=== PATIENT | male | born 1965 | race Caucasian/White ===

== ENCOUNTER 2017-05-12 17:13 | Emergency (ER) | payer MEDICAID ==
[2017-05-12 17:24] VITALS: BMI 21.2
[2017-05-12 17:27] VITALS: BP 115/73; PULSE 79; RESP 18; TEMP 98.2; O2SAT 98
[2017-05-12] MEDS ORDERED: cefTRIAXone (Rocephin) 250 mg Inj IM STA (18:01)
--- NOTE | 2017-05-12 18:28 | ED PDOC ---
Arrival/HPI - General Chief Complaint: Male Genitourinary Time Seen by Provider: 05/12/17 17:45 Historian: Patient - History of Present Illness Narrative History of Present Illness (Text): 05/12/17 18:09 52yr old male presents today with concerns for std. pt states his girlfriend was diagnosed with trichomonasis. pt denies any symptoms but wants to be treated for stds. no cp or sob. no abdominal pain. no penile discharge, no dysuria. no testicular pain. Past Medical History - Provider Review Nursing Documentation Reviewed: Yes - Travel History Have you recently traveled outside [place] w/in the past 3 mons?: No - Infectious Disease Hx of Infectious Diseases: None - Tetanus Immunization Tetanus Immunization: Up to Date - Psychiatric Hx Psychophysiologic Disorder: No Hx Substance Use: No - Anesthesia Hx Anesthesia: No - Suicidal Assessment Feels Threatened In Home Enviroment: No Family/Social History - Physician Review Nursing Documentation Reviewed: Yes Family/Social History: Unknown Family HX Smoking Status: Heavy Smoker > 10 Cigarettes Daily Hx Alcohol Use: Yes Frequency of alcohol use: Socially Hx Substance Use: No Allergies/Home Meds Allergies/Adverse Reactions: Allergies No Known Allergies Allergy (Verified 10/06/16 19:09) Home Medications: Home Meds Medication Instructions Recorded Confirmed No Known Home Med 05/12/17 05/12/17 Review of Systems - Review of Systems Constitutional: absent: Fatigue, Fevers Respiratory: absent: SOB, Cough Cardiovascular: absent: Chest Pain, Palpitations Gastrointestinal: absent: Abdominal Pain, Nausea, Vomiting Genitourinary Male: absent: Dysuria, Frequency, Hematuria, Urinary Output Changes Musculoskeletal: absent: Arthralgias, Back Pain, Neck Pain Skin: absent: Rash, Pruritis Neurological: absent: Headache, Dizziness Psychiatric: absent: Anxiety, Depression Physical Exam Vital Signs Reviewed: Yes Vital Signs Temp Pulse Resp BP Pulse Ox 05/12/17 17:27 98.2 F 79 18 115/73 98 Temperature: Afebrile Blood Pressure: Normal Pulse: Regular Respiratory Rate: Normal Appearance: Positive for: Well-Appearing, Non-Toxic, Comfortable Pain Distress: None Mental Status: Positive for: Alert and Oriented X 3 - Systems Exam Head: Present: Atraumatic Mouth: Present: Moist Mucous Membranes Neck: Present: Normal Range of Motion Respiratory/Chest: Present: Clear to Auscultation, Good Air Exchange. No: Respiratory Distress, Accessory Muscle Use Cardiovascular: Present: Regular Rate and Rhythm, Normal S1, S2. No: Murmurs Abdomen: No: Tenderness Genitourinary Male: Present: Normal External Genitalia, Circumcised Penis, Other (chaparoned by dr. Tapia). No: Penile Discharge, Testicle Tenderness, Penile Swelling, Masses, Erythema, Hernias, Testicle Swelling Back: Present: Normal Inspection Neurological: Present: GCS=15 Skin: Present: Warm, Dry, Normal Color. No: Rashes Psychiatric: Present: Alert, Oriented x 3 Medical Decision Making ED Course and Treatment: 05/12/17 18:52 Patient is nontoxic well-appearing in no distress with stable vital signs Ceftriaxone 250 mg IM Zithromax 1 g p.o. given flagyl 2gm PO Gonorrhea and Chlamydia cultures are pending. Advised patient to refrain from sex for 10 days followup with the primary care physician within the next 2 days or return if symptoms worsen persist or if new symptoms develop. Impression: STd exposure Follow up primary care physician within the next 2 days Return if symptoms worsen persist or if new symptoms develop. - Medication Orders Current Medication Orders: Discontinued Medications Azithromycin (Zithromax) 1,000 mg PO STAT STA PRN Reason: Protocol Stop: 05/12/17 18:07 Last Admin: 05/12/17 18:34 Dose: 1,000 mg Ceftriaxone Sodium (Rocephin) 250 mg IM STAT STA PRN Reason: Protocol Stop: 05/12/17 18:02 Last Admin: 05/12/17 18:34 Dose: 250 mg IM Administration Charges Document 05/12/17 18:34 OCS (Rec: 05/12/17 18:34 OCS [id number]) Injection Site MAR Injection Site Left Deltoid Charges for Administration # of IM Administrations 1 Metronidazole (Flagyl) 2,000 mg PO STAT STA PRN Reason: Protocol Stop: 05/12/17 18:08 Last Admin: 05/12/17 18:34 Dose: 2,000 mg Disposition/Present on Arrival - Present on Arrival Any Indicators Present on Arrival: No History of DVT/PE: No History of Uncontrolled Diabetes: No Urinary Catheter: No History of Decub. Ulcer: No History Surgical Site Infection Following: None - Disposition Have Diagnosis and Disposition been Completed?: Yes Diagnosis: STD exposure Disposition: HOME/ ROUTINE Disposition Time: 18:29 Patient Plan: Discharge Condition: GOOD Discharge Instructions (ExitCare): Sexually Transmitted Diseases (ED), Condom Use (ED), Safe Sex (ED), Trichomoniasis (ED) Additional Instructions: Follow up with the primary care physician within the next 2 days Safe sex practice. return if symptoms worsen,persist or if new symptoms develop. Referrals: Peter Munroe MD [Staff Provider] - Follow up with primary Ghanshyam Mccollum MD [Staff Provider] - Follow up with primary Forms: [employer] (Serbian)
== END 2017-05-12 19:02 | disposition home or self-care (01) ==
LOC: ED 17:13
DX: Z20.2 Contact with and (suspected) exposure to infections with a predominantly sexual mode of transmission (principal)
CPT/HCPCS: 87491; 87591; 96372; 99283; J0696